=== PATIENT | female | born 1955 | race Caucasian/White ===

== ENCOUNTER → 2016-12-08 | Day surgery (SDC) | payer OTHER ==
[~2016-12-08] MED LIST: ALDACTONE25 MG PO; ALPRAZOLAM PO; AMBIEN PO; BAYER BACK AND BODY PO; BYSTOLIC PO; CARVEDILOL12.5 MG PO; CERTAGEN PO; DULOXETINE HCL60 MG PO; FISH OIL 500 M1 EAC1 PO; FLEXERIL10 MG PO; IBUPROFEN PO; MELATONIN PO; METFORMIN HCL500 M1 PO; MOTRIN600 M2 PO; NORVASC PO; PAXIL PO; POTASSIUM CHLO10 MEQ PO; PRAMIPEXOLE DI0.5 MG PO; TRADJENTA5 MG PO; VISTARIL PO; WELLBUTRIN SR PO; ZESTORETIC 20/11 TAB PO; ZOCOR-BORROW, D10 MG PO; [UNRECOGNIZED DRUG - OTHER]
--- NOTE | ~2016-12-08 | OR ---
Unit #: [id number] #: [id number] Patient: RG BENTON [id number] [address] [address] [id number] MR#: [id number] NAME: RG BENTON ROOM: Date of Procedure: 12/08/2016 Admission Date: 12/08/2016 Surgeon: Marcel Ortega III, M.D. : 1955 Attending Physician: Marcel Ortega III, M.D. Primary Care Physician: Ranjan Oliver M.D. OPERATIVE REPORT PREOPERATIVE DIAGNOSES Screening colonoscopy and family history of colon cancer. POSTOPERATIVE DIAGNOSIS Normal colonoscopy. PROCEDURE PERFORMED Colonoscopy to cecum. ANESTHESIA 9 mg of Versed and 50 mg of Demerol. SPECIMENS None. COMPLICATIONS None apparent. INDICATIONS FOR PROCEDURE This is a 61-year-old lady, who has a family history of colon cancer. Her father was diagnosed with that at the age of 70. She has had 2 prior colonoscopies, both of which were normal. She is here today for colonoscopy. DESCRIPTION OF PROCEDURE After consent was obtained, the patient was brought to the endoscopy suite and placed in left lateral decubitus position. We titrated the above sedation. I performed a rectal exam and did not feel any masses. The scope was placed within the rectal vault. Air was insufflated. I navigated the scope all the way to the cecum without any difficulty. She had normal mucosa. No evidence of any polyps or masses and no diverticular disease was seen. The scope was then retroflexed within the rectum and no other masses were seen. The scope was then carefully withdrawn. The patient tolerated the procedure without any problems and returned to the recovery room in stable condition. Dictated by... Marcel Ortega III, M.D. VCL/modl Unit #: [id number] #: [id number] Patient: RG BENTON TD: 12/08/2016 23:51 JOB #: [id number] OPERATIVE REPORT Page 1 of 1 X Lusco,Vincent C III MD X PROCEDURE OPERATIVE NOTE
== END | disposition home or self-care (01) ==
LOC: COPS 10:30
PROVIDERS: Surgery
PROC: 0DJD8ZZ Inspection of Lower Intestinal Tract, Via Natural or Artificial Opening Endoscopic (ICD-10-PCS; principal; 2016-12-08 12:30)
DX: Z12.11 Encounter for screening for malignant neoplasm of colon (principal); Z80.0 Family history of malignant neoplasm of digestive organs; K58.9 Irritable bowel syndrome, unspecified; I10 Essential (primary) hypertension; E11.9 Type 2 diabetes mellitus without complications; Z79.84 Long term (current) use of oral hypoglycemic drugs; G47.30 Sleep apnea, unspecified; G25.81 Restless legs syndrome; F41.8 Other specified anxiety disorders; M54.9 Dorsalgia, unspecified; Z79.1 Long term (current) use of non-steroidal anti-inflammatories (NSAID); Z90.49 Acquired absence of other specified parts of digestive tract; Z87.09 Personal history of other diseases of the respiratory system; Z80.1 Family history of malignant neoplasm of trachea, bronchus and lung; Z98.890 Other specified postprocedural states; Z88.0 Allergy status to penicillin; Z88.8 Allergy status to other drugs, medicaments and biological substances
CPT/HCPCS: 82947; J2175; J2250